=== PATIENT | female | born 1940 | race Caucasian/White ===

== ENCOUNTER → 2017-12-23 | Outpatient (REF) | payer MEDICARE ==
[2015-04-27 08:48] VITALS: BMI 29.7
[~2017-12-23] MED LIST: ACET500T68 PO; BACDS PO; CEP500 PO; CEPH500T7 PO; CHOL10005 PO; DONE10TA64 PO; ESCI20TA38 PO; LEVO50TA80 PO; MEMANTINE HCL PO; [UNRECOGNIZED DRUG - OTHER]
== END ==
LOC: ZZLCC 11:54
PROVIDERS: ATTEND Nurse Practitioner Family
DX: E03.9 Hypothyroidism, unspecified (principal)
CPT/HCPCS: 36415; 84443

== ENCOUNTER → 2018-01-14 | Outpatient (REF) | payer MEDICARE ==
[2015-04-27 08:48] VITALS: BMI 29.7
== END ==
LOC: ZZLCC 13:42
PROVIDERS: ATTEND Nurse Practitioner Family
DX: Z79.899 Other long term (current) drug therapy (principal)
CPT/HCPCS: 82040; 82247; 82310; 82374; 82435; 82565; 82947; 84075; 84132; 84155; 84295; 84450; 84460; 84520

== ENCOUNTER → 2018-05-07 | Outpatient (REF) | payer MEDICARE ==
[2015-04-27 08:48] VITALS: BMI 29.7
== END ==
LOC: ZZLCC 15:18
PROVIDERS: ATTEND Nurse Practitioner Family
DX: E03.9 Hypothyroidism, unspecified (principal); R63.5 Abnormal weight gain
CPT/HCPCS: 84443

== ENCOUNTER → 2018-08-26 | Outpatient (CLI) | payer MEDICARE ==
[2015-04-27 08:48] VITALS: BMI 29.7
--- NOTE | 2018-08-26 13:30 | RADIOLOGY IMAGING REPORT ---
[place] [facility] [place] Chand : 1940 MR: [id number] V: [id number] EXAM DATE: [id number] ORDERING PHYSICIAN: LORENZO GOTTI TECHNOLOGIST: Location: [facility] Patient: Jennifer Chand : 1940 Visit/Account:[id number] Date of Sevice: 08/26/2018 Exam type: CHEST PA AND LAT History: Left lower lobe bronchi Comparison: April 26, 2015. Findings: AP and lateral views were obtained in wheelchair. Patchy airspace consolidation is seen in the lower lung franks which is increased when compared the prior study. There is no evidence of overt pulmona ry edema or pleural effusions. The cardiac silhouette appears normal in size. IMPRESSION: 1. There is patchy airspace consolidation lung bases consistent with infiltrates and/or atelectasis Report Dictated By: Lauren Vaughn MD at 08/26/2018 1:24 PM Report E-Signed By: Lauren Vaughn MD at 08/26/2018 1:27 PM WSN:[email or web address]
== END ==
LOC: RAD 11:44
PROVIDERS: ATTEND Nurse Practitioner Family
DX: R91.8 Other nonspecific abnormal finding of lung field (principal); R06.2 Wheezing
CPT/HCPCS: 71046

== ENCOUNTER → 2018-08-26 | Outpatient (REF) | payer MEDICARE ==
[2015-04-27 08:48] VITALS: BMI 29.7
== END ==
LOC: ZZLCC 14:18
PROVIDERS: ATTEND Nurse Practitioner Family
DX: R05 Cough (principal)
CPT/HCPCS: 82040; 82247; 82310; 82374; 82435; 82565; 82947; 84075; 84132; 84155; 84295; 84450; 84460; 84520; 85027